=== PATIENT | male | born 1960 | race Caucasian/White ===

== ENCOUNTER 2019-05-20 12:03 | Inpatient (IN) | payer OTHER ==
[~2019-05-20] VITALS: Ht 182.9 cm; Wt 64.0 kg
[2019-05-20 12:29] LABS: PCO2 Arterial 41.3 mmHg (35-45); pH Blood Arterial 7.27 (7.35-7.45)
[2019-05-20 13:36] LABS: BASOPHILS ABSOLUTE AUTO 0.03 K/mm3 (0.00-0.23); BASOPHILS PERCENT AUTO 0 % (0-2); EOSINOPHILS ABSOLUTE AUTO 0.02 K/mm3 (0.00-0.68); EOSINOPHILS PERCENT AUTO 0 % (0-6); Hematocrit 22.8 % (37.0-53.0); Hemoglobin 7.2 g/dL (13.5-17.5); IMMATURE GRAN ABSOLUTE AUTO 0.04 K/mm3 (0.00-0.10); IMMATURE GRAN PERCENT AUTO 0 % (0-1); LYMPHOCYTES ABSOLUTE AUTO 1.29 K/mm3 (0.84-5.20); LYMPHOCYTES PERCENT AUTO 12 % (21-46); MONOCYTES PERCENT AUTO 5 % (4-13); Mean Corpuscular HGB 32.1 pg (26.0-34.0); Mean Corpuscular HGB Conc 31.6 g/dL (31.5-36.5); Mean Corpuscular Volume 102 fL (80-100); Mean Platelet Volume 9.4 fL (9.1-12.4); NEUTROPHILS ABSOLUTE AUTO 9.02 K/mm3 (1.96-9.15); NEUTROPHILS PERCENT AUTO 83 % (41-73); Platelet Count 153 K/mm3 (150-400); RDW Coefficient Variation 14.3 % (11.7-14.2); RDW Standard Deviation 52.5 fL (35.1-46.3); Red Blood Cell Count 2.24 M/mm3 (4.30-5.90)
[2019-05-20 13:53] LABS: CPK Creatine Kinase 257 U/L (39-308); Magnesium, Blood 1.9 mg/dL (1.6-2.4)
[2019-05-20 13:59] LABS: Alanine Aminotransfer (ALT/SGP 26 U/L (12-78); Albumin/Globulin Ratio 0.5 (0.8-1.8); Alk Phos 58 U/L (50-136); Anion Gap 11 mmol/L (6-16); Aspartate Aminotrans (AST/SGOT 30 U/L (12-37); Bilirubin, Total 0.2 mg/dL (0.1-1.0); Blood Urea Nitrogen 102 mg/dL (8-24); Bun/Creatinine Ratio 10.7 (12.0-20.0); CO2, Blood 19 mmol/L (21-32); Calcium, Blood 7.4 mg/dL (8.5-10.1); Chloride, Blood 115 mmol/L (98-108); Creatinine, Blood 9.52 mg/dL (0.60-1.20); Glomerular Filtration Rate 6 (60-); Glucose, Blood 101 mg/dL (70-99); Phosphorus, Blood 8.7 mg/dL (2.5-4.9); Potassium, Blood 5.3 mmol/L (3.5-5.5); Sodium, Blood 145 mmol/L (136-145)
[2019-05-20 14:28] LABS: U Amphetamine Screen DETECTED; U Barbituate Screen Not Detected; U Benzodiazapine Screen Not Detected; U Buprenorphine Screen Not Detected; U Cannabinoids Screen DETECTED; U Cocaine Screen Not Detected; U Methadone Screen Not Detected; U Methamphetamine Screen DETECTED; U Opiates Screen Not Detected; U Oxycodone Screen Not Detected; U Phencyclidine Screen Not Detected; U Propoxyphene Screen Not Detected
[2019-05-20 14:34] LABS: IMMATURE RETIC FRACTION 10.3 % (2.3-16.0); RETIC HGB EQUIVALENT 36.4 pg (28.20-36.60); RETICULOCYTE ABSOLUTE 0.0444 M/mm3 (0.0200-0.1100); RETICULOCYTE COUNT PERCENT 2.02 % (0.50-2.50)
--- NOTE | 2019-05-20 14:56 | NUR ---
Echocardiogram completed.
[2019-05-20 15:00] LABS: Source, Urine Catheter
[2019-05-20 15:04] LABS: Bilirubin, Urine Neg (Neg); Blood, Urine 5+ (Neg); Glucose Qualitative, Urine Neg (Neg); Ketones, Urine Neg (Neg); Leukocyte Esterase, Urine Neg (Neg); Nitrite, Urine Neg (Neg); Protein, Urine 4+ (Neg); Urobilinogen, Urine NORM (Normal)
[2019-05-20 15:19] LABS: International Normalized Ratio 1.14; Prothrombin Time Results 11.9 Sec (9.7-11.5)
[2019-05-20 15:21] LABS: Appearance, Urine Clear (Clear); Color, Urine Yellow (P-Yellow); Red Blood Cells, Urine 25-50 /hpf (0-2)
[2019-05-20 15:22] LABS: Bacteria Few /hpf; Squamous Epithelial Cells Few /hpf (Few)
[2019-05-20 18:39] LABS: Base Excess Venous -7.6 mmol/L; Bicarbonate Venous 18.5 mmol/L (24.0-30.0); PCO2 Venous 38.2 mmHg (38-42)
[2019-05-20 18:44] LABS: Hematocrit 24.7 % (37.0-53.0); Hemoglobin 7.9 g/dL (13.5-17.5)
--- NOTE | 2019-05-20 19:00 | NUR ---
INITAL ASSESSMENT PT IS INTUBATED AND SEDATED AT THIS TIME. HE DOES APPEAR TO BE COMFORTABLE, BUT IS NOT RESPONSIVE TO ANY COMMANDS. HE DOES WITHDRAW HIS LEGS AWAY WITH ADJUSTMENT OF HIS SOCKS ON HIS FEET. PUPILS ARE EQUAL BUT SLUGGISH. PT DOES HAVE A SLIGHT COUGH WHEN ET BEING SUCTIONED. PROPOFOL GTT AT 30MCG WILL CON'T TO TITRATE NEEDED T/O SHIFT FOR SEDATION. SEE RT NOTES REGARDING VENT SETTINGS. PT IS IN SOFT MIGUEL WRIST RESTRAINTS. NOT PULLING AGAINST RESTRAINTS. PT HAS AN OG TUBE IN PLACE WITH ET TUBE AND CLAMPED ORDERED. CEDENO CATH IN PLACE WITH 24 HOUR URINE IN PROGRESS. URINE ON ICE. TURNED PT AND SKIN APPEARS TO BE OVERALL CDI. COOL BUT NOT CLAMMY TO TOUCH. PT ALSO HAS MAINTANENCE FLUIDS RUNNING SEE EMAR. IV'S TO LEFT ARM ARE PATENT. POWERGLIDE TO LEFT ARM ALSO PATENT AND INFUSING. WILL CON'T TO MONITOR AND KEEP PT SAFE T/O SHIFT.
--- NOTE | 2019-05-20 19:33 | NUR ---
SHIFT SUMMARY: PATIENT ARRIVED FROM ED AT 1357 VIA GURNEY. INTUBATED AND SEDATED; VENT A/C/14/500/50% FIO2/5 PEEP, TOLERATING WELL. PROPOFOL WAS INFUSING AT 50 MCG/KG, BUT HAS BEEN TITRATED DOWN TO 30 MCG/KG WITH ADEQUATE SEDATION. SKIN INTACT. OLIGURIA; CEDENO DRAINING MINIMAL URINE, HAS 24 HOUR URINE COLLECTION STARTED. OGT CLAMPED. LUNG SOUNDS CLEAR IN UPPER LOBES, DIM IN BASES. S/P TRANSFUSION OF PRBC'S, NO ADVERSE REACTION NOTED. RENAL DUPLEX COMPLETED. PLAN IS FOR POSSIBLE DIALYSIS, HAS NEVER HAD DIALYSIS BEFORE, NO ACCESS AT THIS TIME. NO FAMILY AT BEDSIDE.
[2019-05-20 22:58] LABS: Hematocrit 24.5 % (37.0-53.0)
--- NOTE | 2019-05-20 23:55 | NUR ---
ASSESSMENT PT CON'T TO BE STABLE. HE SEEMS TO BE MORE RESPONSIVE WHEN THIS RN MOVES HIM ABOUT IN BED. HE MOVES HIS ARMS AND SWALLOWS MORE AROUND THE ET TUBE. HE CON'T HOWEVER TO NOT MOVE HIS HEAD OR FOLLOW ANY COMMANDS. NO CHANGES WITH RESPIRATORY STATUS. CON'T ON THE SAME VENT SETTINGS. SEE RT NOTES. VSS WITH NO CHANGES FROM BASELINE. WILL CON'T TO MONITOR AND TREAT PT.
[2019-05-21 03:58] LABS: BASOPHILS ABSOLUTE AUTO 0.04 K/mm3 (0.00-0.23); BASOPHILS PERCENT AUTO 0 % (0-2); EOSINOPHILS ABSOLUTE AUTO 0.43 K/mm3 (0.00-0.68); EOSINOPHILS PERCENT AUTO 5 % (0-6); Hematocrit 24.2 % (37.0-53.0); Hemoglobin 7.9 g/dL (13.5-17.5); IMMATURE GRAN ABSOLUTE AUTO 0.04 K/mm3 (0.00-0.10); IMMATURE GRAN PERCENT AUTO 0 % (0-1); LYMPHOCYTES ABSOLUTE AUTO 1.92 K/mm3 (0.84-5.20); LYMPHOCYTES PERCENT AUTO 22 % (21-46); MONOCYTES ABSOLUTE AUTO 0.57 K/mm3 (0.16-1.47); MONOCYTES PERCENT AUTO 6 % (4-13); Mean Corpuscular HGB 31.9 pg (26.0-34.0); Mean Corpuscular HGB Conc 32.6 g/dL (31.5-36.5); Mean Platelet Volume 10.1 fL (9.1-12.4); NEUTROPHILS ABSOLUTE AUTO 5.91 K/mm3 (1.96-9.15); NEUTROPHILS PERCENT AUTO 67 % (41-73); Platelet Count 141 K/mm3 (150-400); RDW Coefficient Variation 14.6 % (11.7-14.2); RDW Standard Deviation 51.2 fL (35.1-46.3); Red Blood Cell Count 2.48 M/mm3 (4.30-5.90); White Blood Cell Count 8.91 K/mm3 (4.00-11.30)
[2019-05-21 03:59] LABS: Mean Corpuscular Volume 98 fL (80-100)
[2019-05-21 04:31] LABS: Alanine Aminotransfer (ALT/SGP 26 U/L (12-78); Albumin/Globulin Ratio 0.5 (0.8-1.8); Alk Phos 57 U/L (50-136); Anion Gap 9 mmol/L (6-16); Aspartate Aminotrans (AST/SGOT 25 U/L (12-37); Bilirubin, Direct 0.2 mg/dL (0.0-0.3); Bilirubin, Indirect 0.1 mg/dL (0.1-0.7); Bilirubin, Total 0.3 mg/dL (0.1-1.0); Blood Urea Nitrogen 103 mg/dL (8-24); CO2, Blood 23 mmol/L (21-32); CPK Creatine Kinase 189 U/L (39-308); Calcium, Blood 7.5 mg/dL (8.5-10.1); Chloride, Blood 113 mmol/L (98-108); Globulin, Blood 3.8 g/dL (2.2-4.0); Glucose, Blood 91 mg/dL (70-99); Potassium, Blood 4.4 mmol/L (3.5-5.5); Sodium, Blood 145 mmol/L (136-145); Total Protein, Blood 5.8 g/dL (6.4-8.2); Uric Acid, Blood 9.1 mg/dL (3.5-7.2)
[2019-05-21 04:41] LABS: Bun/Creatinine Ratio 10.5 (12.0-20.0); Creatinine, Blood 9.77 mg/dL (0.60-1.20); Glomerular Filtration Rate 6 (60-); Phosphorus, Blood 8.5 mg/dL (2.5-4.9)
--- NOTE | 2019-05-21 05:07 | NUR ---
ASSESSMENT PT CON'T TO BE STABLE WITH NO CHANGES ON THE VENT. T/O SHIFT PT HAS BECOME MORE RESPONSIVE. AT THIS TIME WHEN TURNNING PT HE DOES HAVE FACIAL GRIMMACING AND MOVES HIS EXTREMITIES MORE. HE CON'T TO NOT OPEN HIS EYES AND DOES NOT FOLLOW ANY COMMANDS. NO CHANGES TO THE PROPOFOL GTT WHICH IS AT 30MCG. 24 HOUR URINE CON'T WELL. PT DID HAVE A CRITICAL PHOS THIS AM WHICH WAS CALLED TO DR VAZQUEZ. DR VAZQUEZ DID NOT HAVE ANY NEW ORDERS DUE TO THE VALUE TRENDING THE CORRECT WAY AND DR BARTH IS ALREADY CONSULTED. PT CON'T TO BE IN SOFT BILATERAL WRIST RESTRAINTS. WILL CON'T TO MONITOR AND KEEP PT SAFE T/O REMAINDER OF SHIFT.
--- NOTE | 2019-05-21 06:19 | NUR ---
SHIFT SUMMARY PT CON'T TO BE STABLE WITH NO CHANGES TO VITALS. NEUROLOGICALLY HE SEEMS TO BE MORE RESPONSIVE T/O SHIFT. RESPONDING MORE TO CARE. HE DOES HOWEVER CON'T TO BE NON-RESPONSIVE TO ANY COMMANDS. VENT SETTING CON'T TO BE UNCHANGED. WILL CON'T TO MONITOR AND KEEP PT SAFE TILL REPORT TO ONCOMING RN.
[2019-05-21 07:21] LABS: PCO2 Arterial 35.7 mmHg (35-45); PO2 Arterial 73.5 mmHg (80-100); pH Blood Arterial 7.38 (7.35-7.45)
[2019-05-21 10:34] LABS: Creatinine, Blood 9.71 mg/dL (0.60-1.20)
--- NOTE | 2019-05-21 11:39 | NUR ---
PT WAS PLACED ON SPONT EARLIER PER DR STATON AND IS TOLERATING PS 10 WITH 500 TV WELL.
[2019-05-21 12:29] LABS: Percent Saturation 24.7 % (20.0-50.0)
--- NOTE | 2019-05-21 13:56 | NUR ---
SEDATIION VACATION DONE WITH MOVEMENT OF ALL EXT, OPENING OF EYES, BUT BEGAN TO WILDLY TURN HEAD SIDE TO SIDE AND PROPOFOL GTT RESTARTED. RESTRAINTS IN PLACE, VSS. REMAINS ON PS 10 WITH RATE 22-24 AND TV 400-500 RANGE.
--- NOTE | 2019-05-21 17:05 | NUR ---
PT SLOWLY DROPPING TV, RR INC MID 20'S, SATS DOWN TO 88-89. FIO2 INC TO 35% RT RECOMMENDS WAITING ON RETURNING TO AC FOR NOW. PT IS IN NO SIGNIFICANT DISTRESS, JUST A SLOW DOWNWARD TREND.
--- NOTE | 2019-05-21 17:37 | NUR ---
PT RESTING ON 40MCG OF PROPOFOL. NO FURTHER RESP TRENDS OR DESAT NOTED AT THIS TIME. VSS, I/O NOTED AND 24 HOUR URINE SENT ON TIME, CONT IN SR.
[2019-05-21 18:09] LABS: Protein, Urine Quantitative 123.6 mg/dL (0.0-11.9)
--- NOTE | 2019-05-21 20:15 | NUR ---
RT AT BEDSIDE. PT PLACE BACK ON A/C: 14, Vt 500, PEEP 5.0, FiO2 35%.
--- NOTE | 2019-05-21 21:01 | NUR ---
AGITATION: PT VERY AGITATED AND FIGHTING VENT SINCE START OF SHIFT. DR. GRADY IN DEPT AND CAME TO BEDSIDE. FENTANYL 50mcg IVP Q2' ORDERED AND WAS GIVEN. PT MUCH MORE RELAXED. VSS. VENT SETTINGS REMAIN ON A/C 14, Vt 500, PEEP 5.0, FiO2 35%.
[2019-05-22 03:16] LABS: BASOPHILS ABSOLUTE AUTO 0.03 K/mm3 (0.00-0.23); BASOPHILS PERCENT AUTO 0 % (0-2); EOSINOPHILS ABSOLUTE AUTO 0.35 K/mm3 (0.00-0.68); EOSINOPHILS PERCENT AUTO 4 % (0-6); Hematocrit 24.5 % (37.0-53.0); Hemoglobin 7.8 g/dL (13.5-17.5); IMMATURE GRAN ABSOLUTE AUTO 0.02 K/mm3 (0.00-0.10); IMMATURE GRAN PERCENT AUTO 0 % (0-1); LYMPHOCYTES ABSOLUTE AUTO 2.32 K/mm3 (0.84-5.20); LYMPHOCYTES PERCENT AUTO 26 % (21-46); MONOCYTES ABSOLUTE AUTO 0.72 K/mm3 (0.16-1.47); MONOCYTES PERCENT AUTO 8 % (4-13); Mean Corpuscular HGB 32.6 pg (26.0-34.0); Mean Corpuscular HGB Conc 31.8 g/dL (31.5-36.5); Mean Corpuscular Volume 103 fL (80-100); NEUTROPHILS ABSOLUTE AUTO 5.51 K/mm3 (1.96-9.15); NEUTROPHILS PERCENT AUTO 62 % (41-73); Platelet Count 129 K/mm3 (150-400); RDW Coefficient Variation 14.5 % (11.7-14.2); RDW Standard Deviation 54.3 fL (35.1-46.3); Red Blood Cell Count 2.39 M/mm3 (4.30-5.90); White Blood Cell Count 8.95 K/mm3 (4.00-11.30)
[2019-05-22 03:42] LABS: Albumin, Blood 1.8 g/dL (3.4-5.0); Anion Gap 11 mmol/L (6-16); Blood Urea Nitrogen 105 mg/dL (8-24); Bun/Creatinine Ratio 10.6 (12.0-20.0); CO2, Blood 22 mmol/L (21-32); Chloride, Blood 115 mmol/L (98-108); Creatinine, Blood 9.93 mg/dL (0.60-1.20); Glomerular Filtration Rate 6 (60-); Glucose, Blood 108 mg/dL (70-99); Phosphorus, Blood 8.8 mg/dL (2.5-4.9); Potassium, Blood 4.3 mmol/L (3.5-5.5); Sodium, Blood 148 mmol/L (136-145)
--- NOTE | 2019-05-22 06:06 | NUR ---
DR. BARTH CALLED AND WAS UPDATED: NEW ORDERS TO INFUSE 1u PRBC TODAY. INCREASE FREE WATER TO 100cc q6 hours. D/C D5 NS AND CHANGE TO D5W 75/hr. FIND OUT WHO PT'S PRIMARY CARE PHYSICIAN IS AND FIND OUT BASELINE CREATININE.
--- NOTE | 2019-05-22 08:00 | NUR ---
INITIAL ASSESSMENT PATIENT INTUBATED AND SEDATED. SCLERAL EDEMA NOTED. PATIENT RESPONDING TO PAINFUL STIMULI AND NURSING CARE. R HAND CONTRACTED AND STIFF. PATIENT AFEBRILE. PATIENT RECEIVED PRN FENTANYL ABOUT 30 MINUTES AGO. NO SIGNS OF PAIN OR DISCOMFORT NOTED AT THIS TIME. PATIENT ON AC 14, TV 500, PEEP 5, FIO2 45%. LUNGS CLEAR IN UPPER LOBES AND DIMINISHED IN LOWER LOBES. SMALL AMOUNT OF THICK, HELLER SPUTUM BEING SUCTIONED FROM ETT. PATIENT IN SR, HR 80S TO 90S. BP STABLE. ANTIEMBOLISM STOCKINGS IN PLACE. PIVOT 1.5 TF INFUSING AT GOAL RATE OF 30 MLS PER HOUR WITH 100 ML WATER FLUSH Q6H. RESIDUAL OF 50 MLS OBTAINED AND REINSTILLED THIS AM. LAST DATE OF BM UNKNOWN. CEDENO IN PLACE, DRAINING YELLOW/ GREEN COLORED URINE. SCHEDULED BUMEX BEING GIVEN. 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 GRAFT SITES TO BILAT THIGHS. BRUISES TO LOWER ABDOMEN. D5W INFUSING AT 75 MLS/ HOUR. PROPOFOL AT 45 MCG/ KG/ MINUTE. BED LOW, CALL LIGHT IN REACH. WILL CONTINUE TO MONITOR PATIENT FREQUENTLY THROUGHOUT SHIFT.
--- NOTE | 2019-05-22 12:05 | NUR ---
PATIENT RESTING QUIETLY IN BED. PATIENT APPEARS WITHOUT PAIN OR DISCOMFORT AT THIS TIME. PATIENT AFEBRILE. VITAL SIGNS REMAIN STABLE. HR IN THE 80S. VENT SETTINGS- AC 14, TV 500, PEEP 5, FIO2 45%. TF ON HOLD FOR IMPENDING PERMACATH PLACEMENT. TF RESIDUAL OF 5 MLS OBTAINED AND REINSTILLED. BLOOD SUGAR OF 80. SEDATION DECREASED EARLIER IN SHIFT- PATIENT BECAME AGITATED AND WAS NOT FOLLOWING ANY COMMANDS. NO OTHER ACUTE CHANGES TO NOTE ON AT THIS TIME. WILL CONTINUE TO MONITOR.
--- NOTE | 2019-05-22 12:05 | NUR ---
DR. BARTH CALLED. DR. BARTH SPOKE TO SON AND CONSENTED TO PERMACATH PLACEMENT FOR DIALYSIS. DR. KUMARI CALLED AND INFORMED OF CONSULT. STATED TO KEEP PATIENT NPO, TF PLACED ON STANDBY. DR. KUMARI STATED HE WOULD BE BY SHORTLY.
--- NOTE | 2019-05-22 12:13 | NUR ---
DR. KUMARI AND PRIMARY NURSE TRIED TO CALL PATIENT'S SON, RADHA, FOR PERMACATH PLACEMENT CONSENT. SON DID NOT ANSWER. CALLED PATIENT'S SISTER, SHANA, AND OBTAINED CONSENT.
--- NOTE | 2019-05-22 14:01 | NUR ---
PATIENT TAKEN TO KETTLE LOADER FOR PERMACATH PLACEMENT.
--- NOTE | 2019-05-22 15:16 | NUR ---
PATIENT RETURNED FROM STRAIGHT CUTTER MACHINE. PATIENT REMAINS INTUBATED AND SEDATED. PATIENT APPEARS COMFORTABLE AT THIS TIME. VITAL SIGNS STABLE. TF RESTARTED AT GOAL RATE. WILL CONTINUE TO MONITOR.
--- NOTE | 2019-05-22 16:27 | NUR ---
DR. BARTH CALLED AND INFORMED THAT PERMACATH SUCCESSFULLY PLACED AND ABLE TO BE USED FOR DIALYSIS. DR. BARTH STATED THAT THEY WILL BEGIN DIALYSIS TOMORROW.
--- NOTE | 2019-05-22 16:34 | NUR ---
PATIENT RESTING QUIETLY. NO SIGNS OF PAIN OR DISCOMFORT AT THIS TIME. VITAL SIGNS STABLE. FI02 AT 35%. TF RESIDUAL OF 10 MLS OBTAINED AND REINSTILLED. NO OTHER ACUTE CHANGES TO NOTE ON AT THIS TIME. WILL CONTINUE TO MONITOR.
--- NOTE | 2019-05-22 18:43 | NUR ---
SHIFT SUMMARY PATIENT REMAINED INTUBATED AND SEDATED. SEDATION DECREASED DURING SHIFT TO ASSESS NEURO STATUS. PATIENT BECAME AGITATED AND DID NOT FOLLOW ANY COMMANDS. PATIENT REMAINED RESPONDING TO PAINFUL STIMULI AND NURSING CARE. PATIENT REMAINED AFEBRILE. PATIENT RECEIVED PRN FENTANYL FOR SIGNS OF PAIN. PATIENT REMAINED ON AC 14, PEEP 5, TV 500. FIO2 RANGED FROM 30 TO 45%. FIO2 CURRENTLY 30%. LUNGS HAVE REMAINED CLEAR IN UPPER LOBES AND DIMINISHED IN LOWER LOBES. PATIENT REMAINED IN SR, HR 80S TO 90S. BP REMAINED STABLE. ANTIEMBOLISM STOCKINGS IN PLACE. TF REMAINED INFUSING AT GOAL RATE. RESIDUALS 5 TO 50 MLS. NO BM THIS SHIFT. CEDENO REMAINED DRAINING YELLOW/ GREEN URINE. PATIENT HAD PERMACATH PLACED TO LEFT UPPER CHEST. SITE OOZING SLIGHTLY ABOUT HALF AN HOUR AGO. CHARGE NURSE IN ROOM- CLEANSED SITE WITH CHLOROHEXADINE, PLACED KARRIE DRESSING AND TEGADERM. 2 LB WEIGHT APPLIED. HAS REMAINED STABLE SINCE. PATIENT REPOSITIONED Q2H AND PRN. PROPOFOL INFUSING AT 45 MCG/ KG/ MINUTE. BLOOD SUGARS 80 TO 84. NO SIGNS OF PAIN AT THIS TIME. BED LOW, CALL LIGHT IN REACH. WILL BE GIVING REPORT TO ONCOMING NURSE SHORTLY.
--- NOTE | 2019-05-22 18:54 | NUR ---
REPORT GIVEN TO ASSUMING NURSE, STEVEN CONNELLY.
--- NOTE | 2019-05-22 20:00 | NUR ---
ASSUMED CARE OF PT AT 1915. REPORT RECEIVED AT BEDSIDE. PT PRESENTS IN BED. VENTED. AC 14, Tv 500, FIO2 30 %, PEEP 5. PT TOLERATING VENT WELL WITH PROPOFOL AT 40 MCG'S. PT IN NO APPARENT DISTRESS. WILL REVIEW CHART AND PLAN OF CARE FOR THIS PT.
--- NOTE | 2019-05-22 23:00 | NUR ---
FULL BEDBATH DONE WITH FULL LINEN CHANGE. PT TOLERATES THIS WELL. DOES ELICIT COUGH DURING TURNS. ETT SUCTIONING DONE WITH RETURN OF LIGHT HELLER COLORED SPUTUM WITH SPECKS. PT ABLE TO MAINTAIN GREATER THAN 90 PERCENT SATURATIONS WITH CURRENT VENT SETTINGS. PT HAS ADEQUATE URNE OUTPUT WITH CLEAR VERY LIGHT COLORED URINE. WILL CONTINUE TO MONITOR PT.
--- NOTE | 2019-05-23 03:00 | NUR ---
PT RESTING IN BED. CONTINUES ON 40 MCG PROPOFOL AND MAINTAINS SAS OF 3. PT AWAKENS TO TACTILE STIMULI. BUT EASILY RETURNS TO SLEEP. PT IN NO APPARENT DISTRESS AT THIS TIME.
[2019-05-23 03:50] LABS: BASOPHILS ABSOLUTE AUTO 0.04 K/mm3 (0.00-0.23); BASOPHILS PERCENT AUTO 1 % (0-2); EOSINOPHILS ABSOLUTE AUTO 0.63 K/mm3 (0.00-0.68); EOSINOPHILS PERCENT AUTO 8 % (0-6); Hematocrit 27.1 % (37.0-53.0); Hemoglobin 8.4 g/dL (13.5-17.5); IMMATURE GRAN ABSOLUTE AUTO 0.03 K/mm3 (0.00-0.10); IMMATURE GRAN PERCENT AUTO 0 % (0-1); LYMPHOCYTES ABSOLUTE AUTO 2.31 K/mm3 (0.84-5.20); LYMPHOCYTES PERCENT AUTO 27 % (21-46); MONOCYTES ABSOLUTE AUTO 0.55 K/mm3 (0.16-1.47); MONOCYTES PERCENT AUTO 7 % (4-13); Mean Corpuscular HGB 31.6 pg (26.0-34.0); Mean Corpuscular Volume 102 fL (80-100); NEUTROPHILS ABSOLUTE AUTO 4.86 K/mm3 (1.96-9.15); NEUTROPHILS PERCENT AUTO 58 % (41-73); Platelet Count 133 K/mm3 (150-400); RDW Coefficient Variation 14.6 % (11.7-14.2); RDW Standard Deviation 54.4 fL (35.1-46.3); Red Blood Cell Count 2.66 M/mm3 (4.30-5.90); White Blood Cell Count 8.42 K/mm3 (4.00-11.30)
[2019-05-23 04:14] LABS: Magnesium, Blood 2.1 mg/dL (1.6-2.4)
[2019-05-23 04:37] LABS: Anion Gap 10 mmol/L (6-16); Blood Urea Nitrogen 103 mg/dL (8-24); Bun/Creatinine Ratio 10.4 (12.0-20.0); CO2, Blood 23 mmol/L (21-32); Calcium, Blood 7.3 mg/dL (8.5-10.1); Chloride, Blood 112 mmol/L (98-108); Creatinine, Blood 9.95 mg/dL (0.60-1.20); Glomerular Filtration Rate 5 (60-); Glucose, Blood 95 mg/dL (70-99); Potassium, Blood 5.4 mmol/L (3.5-5.5); Sodium, Blood 145 mmol/L (136-145)
--- NOTE | 2019-05-23 08:00 | NUR ---
INITIAL ASSESSMENT PATIENT INTUBATED AND SEDATED. PATIENT RESPONDS TO PAINFUL STIMULI AND NURSING CARE. GROSS MOVEMENTS OF ALL EXTREMITIES NOTED. R HAND CONTRACTED. 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 PATIENT AFEBRILE. PATIENT SATTING 90% AND GREATER ON VENT SETTINGS OF AC 14, TV 500, PEEP 5, 30% FIO2. PATIENT HAS MOIST COUGH. MODERATE AMOUNT OF THICK, HELLER SPUTUM BEING SUCTIONED FROM ETT. PATIENT IN SR, HR IN THE 90S. BP STABLE. ANTIEMBOLISM STOCKINGS IN PLACE. PIVOT 1.5 TF INFUSING AT GOAL RATE OF 30 MLS PER HOUR WITH 100 ML WATER FLUSH Q6H. RESIDUAL OF 70 MLS OBTAINED AND REINSTILLED THIS AM. DATE OF LAST BM UNKNOWN. CEDENO DRAINING YELLOW/ GREEN COLORED URINE. SCHEDULED BUMEX BEING GIVEN. PERMACATH TO LEFT CHEST. SCARS NOTED TO BILAT THIGHS AND R ARM. BRUISES NOTED TO LOWER ABDOMEN. PROPOFOL INFUSING AT 40 MCG/ KG/ MINUTE. BED LOW, CALL LIGHT IN REACH. WILL CONTINUE TO MONITOR PATIENT FREQUENTLY THROUGHOUT SHIFT.
[2019-05-23 09:08] LABS: ANTIGLOMERULAR BM AB 4 units (0-20)
--- NOTE | 2019-05-23 12:00 | NUR ---
PATIENT REMAINS INTUBATED AND SEDATED. NO SIGNS OF PAIN AT THIS TIME. AFEBRILE. VITAL SIGNS STABLE. HR 80S TO 90S. BP STABLE. VENT SETTINGS AC 14, TV 500, PEEP 5, 30% FIO2. TF RESIDUAL OF 210 MLS OBTAINED AND REINSTILLED. BLOOD SUGAR OF 112. NO OTHER ACUTE CHANGES TO NOTE ON AT THIS TIME. WILL CONTINUE TO MONITOR.
--- NOTE | 2019-05-23 15:18 | NUR ---
PATIENT ON SEDATION VACATION FOR ALMOST AN HOUR. PATIENT FOLLOWING SIMPLE COMMANDS AND ANSWERING QUESTIONS WITH NODDING AND SHAKING OF HEAD. DR. STATON CALLED TO ROOM TO SEE PATIENT. SPOKE WITH PATIENT AND PLACED HIM ON SPONTANEOUS PRESSURE SUPPORT. INFORMED PATIENT THAT HE WAS DOING WELL AND THAT MAY BE ABLE TO PULL THE BREATHING TUBE AFTER DIALYSIS TOMORROW. PATIENT BECAME AGITATED AND STARTING SHAKING HIS HEAD "NO" WHEN TOLD THIS. SEDATION STARTED BACK UP. PATIENT PLACED BACK ON AC SETTINGS SHORT TIME LATER.
--- NOTE | 2019-05-23 16:00 | NUR ---
PATIENT RESTING QUIETLY IN BED. VITAL SIGNS STABLE. AFEBRILE. NO SIGNS OF PAIN OR DISCOMFORT NOTED AT THIS TIME. RESIDUAL OF 75 MLS OBTAINED AND REINSTILLED. NO ACUTE CHANGES TO NOTE ON AT THIS TIME. WILL CONTINUE TO MONITOR.
[2019-05-23 16:06] LABS: A/G RATIO 0.8 (0.7-1.7); ALBUMIN 2.3 g/dL (2.9-4.4); ALPHA-1-GLOBULIN 0.3 g/dL (0.0-0.4); ALPHA-2-GLOBULIN 0.7 g/dL (0.4-1.0); BETA GLOBULIN 0.9 g/dL (0.7-1.3); GAMMA GLOBULIN 1.3 g/dL (0.4-1.8); GLOBULIN, TOTAL 3.1 g/dL (2.2-3.9); IMMUNOGLOBULIN A, QN, SERUM 273 mg/dL (90-386); IMMUNOGLOBULIN G, QN, SERUM 1331 mg/dL (700-1600); IMMUNOGLOBULIN M, QN, SERUM 16 mg/dL (20-172); M-SPIKE Not Observed g/dL (Not Observed); PROTEIN, TOTAL, SERUM 5.4 g/dL (6.0-8.5)
--- NOTE | 2019-05-23 18:38 | NUR ---
SHIFT SUMMARY PATIENT REMAINED INTUBATED AND SEDATED. PATIENT REMAINED RESPONDING TO PAINFUL STIMULI AND NURSING CARE. PATIENT DID HAVE SEDATION VACATION FOR AROUND AN HOUR TODAY. PATIENT WAS ABLE TO OPEN EYES, ANSWER YES AND NO QUESTIONS WITH NODDING AND SHAKING OF HEAD, AND FOLLOW SOME SIMPLE COMMANDS SUCH WIGGLING TOES AND SQUEEZING HANDS. PATIENT ABLE TO MOVE ALL EXTREMITIES. PATIENT GIVEN PRN FENTANYL FOR SIGNS OF PAIN. PATIENT REMAINED AFEBRILE. PATIENT REMAINED ON VENT SETTINGS AC 14, PEEP 5, TV 500 AND FIO2 BETWEEN 30 TO 40%, EXCEPT WHEN ON SEDATION VACATION WHEN PATIENT WAS ON SPONTANEOUS SETTINGS. PATIENT REMAINED IN SR, HR 80S TO 90S. BP REMAINED STABLE. TF REMAINED AT GOAL RATE. RESIDUAL RANGED FROM 70 TO 210 MLS. PATIENT HAD GOOD URINE OUTPUT FROM CEDENO. PATIENT CONTINUES TO RECEIVE SCHEDULED BUMEX. NO CHANGE TO SKIN. PATIENT REPOSITIONED THROUGHOUT SHIFT. PROPOFOL CURRENTLY INFUSING AT 30 MCG/ KG/ MINUTE. PATIENT HAD DIALYSIS THIS AM AND HAD 1 LITER PULLED OFF. PATIENT APPEARS COMFORTABLE AT THIS TIME. BED LOW, CALL LIGHT IN REACH. WILL BE GIVING REPORT TO ONCOMING STAMP PRESS OPERATOR NURSE SHORTLY.
[2019-05-24 03:51] LABS: Hematocrit 26.7 % (37.0-53.0); Hemoglobin 8.6 g/dL (13.5-17.5)
[2019-05-24 04:11] LABS: Albumin, Blood 1.9 g/dL (3.4-5.0); Anion Gap 7 mmol/L (6-16); Blood Urea Nitrogen 67 mg/dL (8-24); Bun/Creatinine Ratio 9.7 (12.0-20.0); CO2, Blood 30 mmol/L (21-32); Calcium, Blood 7.6 mg/dL (8.5-10.1); Chloride, Blood 104 mmol/L (98-108); Creatinine, Blood 6.92 mg/dL (0.60-1.20); Glomerular Filtration Rate 9 (60-); Glucose, Blood 99 mg/dL (70-99); Magnesium, Blood 1.9 mg/dL (1.6-2.4); Phosphorus, Blood 7.4 mg/dL (2.5-4.9); Potassium, Blood 4.5 mmol/L (3.5-5.5); Sodium, Blood 141 mmol/L (136-145)
--- NOTE | 2019-05-24 05:48 | NUR ---
PT SLEPT THROUGH NIGHT. VSS. PAIN, AGGITATION CONTROLLE WITH ORDERED MEDICATIONS, SEE EMAR. OTHERWISE PT. REMAINED MILDLY SEDATED THROUGH NIGHT, ROUSABLE TO MODERATE NAILBED PRESSURE, LIGHT SHAKING OF SHOULDER. IN AM, PT. PASSES BREATHING TRIAL. ABLE TO BREATHE ON SPONTANEOUS SETTING, PULLING ~ 400 TIDAL VOLUMES, RATE ~ 18, MAINTAIN SPO2 > 95% ON IO2 40%. WILL CONTINUE TO MONITOR.
--- NOTE | 2019-05-24 07:20 | NUR ---
ASSUMED CARE OF PT AT 0700. REPORT FROM GRADY JOHNSON. PT INTUBATED AND SEDATED. VENT SETTINGS AC 14/500/5/40%. PROPOFOL INCREASED TO 25 MCG/KG/MIN. PT GRIMACES c CARE. GAG AND COUGH REFLEX PRESENT. JULIETA, 2MM. LUNGS CLEAR. PT P/W/D. VSS. CEDENO PATENT AND DRAINING TO GRAVITY. POWERGLIDE TO LUE. FUENTES HOSE IN PLACE. PT MOVES EXTREMITIES. TUBE FEEDING AT GOAL, 30 ML/HR. RESIDUALS 100ML. WILL PLAN FOR DIALYIS AND EXTUBATION TODAY. WILL CONTINUE TO MONITOR.
--- NOTE | 2019-05-24 09:20 | NUR ---
DR CARPENTER AT BEDSIDE FOR ASSESSMENT. WILL PLACE PROPOFOL ON STANDBY AND MONITOR FOR POTENTIAL EXTUBATION. TUBE FEEDINGS PLACED ON HOLD.
--- NOTE | 2019-05-24 11:04 | NUR ---
PROPOFOL ON STANDYBY AT 0927, VENT SET TO SPONTANEOUS MODE AT 0941. PT FOLLOWING SIMPLE COMMANDS. DR CARPENTER NOTIFIED. RT AT BEDSIDE FOR EXTUBATION AT 1059. PT ABLE TO MANAGE SECRETIONS. WET COUGH NOTED. ASSISTED TO SUCTION. PLACED ON 2L VIA NC. WILL CONTINUE TO MONITOR.
[2019-05-24 11:07] LABS: M-SPIKE, % Not Observed % (Not Observed); PROTEIN,TOTAL,URINE 100.9 mg/dL (Not Estab.)
--- NOTE | 2019-05-24 13:14 | NUR ---
PT CONTINUES TO BE HYPERTENSIVE. DR CARPENTER AWARE. DIALYSIS NURSE AT BEDSIDE. PT RESTLESS IN BED. ATTEMPTED TO REPOSITION, REDIRECT AND CALM. PT c WET COUGH, ABLE TO SPIT UP SECRETIONS. WILL CONTINUE TO MONITOR.
--- NOTE | 2019-05-24 15:34 | NUR ---
DIALYSIS CONTINUES AT BEDSIDE. PT c WET, PRODUCTIVE COUGH. WHITE SPUTUM. ABLE TO CLEAR SECRETIONS, ASSIST c SUCTIONING NEEDED. LUNGS CLEAR. PT INTERMITTANTLY RESTLESS IN BED. REPOSITIONED FOR COMFORT NEEDED. PT c QUIET, MUMBLING SPEECH. DIFFICULT TO UNDERSTAND. WILL CONTINUE TO MONITOR.
--- NOTE | 2019-05-24 17:54 | NUR ---
SHIFT SUMMARY PT EXTUBATED TODAY. PT FOLLOWING SIMPLE COMMANDS. DIFFICULT TO UNDERSTAND D/T MUMBLED SPEECH. MAEW. O2 TITRATED DURING SHIFT FOR O2 SATS <94%. PT ON 5L AT THIS TIME. RHONCHI IN UPPER LOBES, WORSE ON RIGHT. PT c GOOD COUGH, PRODUCTIVE, WHITE SPUTUM. ASSIST TO CLEAR c SUCTIONING. ASSISTED PT TO USE FLUTTER VALVE. PT TOO WEAK TO HOLD BUT ABLE TO USE c ASSISTANCE. NASOTRACHEAL SUCTIONING THIS SHIFT, PER DR CARPENTER CONTINUE NEXT SHIFT NEEDED. WILL MAINTAIN NPO STATUS AT THIS TIME. DIALYSIS c 1 UNIT PRBCS TODAY. 2450 ML OFF. CONTINUED DIURESIS c BUMEX. CEDENO PATENT AND DRAINING CLEAR YELLOW URINE TO GRAVITY. 1200ML OUT TODAY. HTN NOTED THIS SHIFT. IMPROVED FOR SHORT PERIOD OF TIME p DIALYSIS, ORDER OBTAINED AND MEDICATED c PRN LABETALOL IVP. PT c SMALL BM THIS SHIFT p SUPPOSITORY. SENT TO LAB FOR GUIAC. REPORT TO ONCOMING NURSE.
[2019-05-25 03:53] LABS: Hematocrit 36.2 % (37.0-53.0); Hemoglobin 11.6 g/dL (13.5-17.5)
[2019-05-25 04:07] LABS: HBSAG SCREEN Negative (Negative); HEP A AB, IGM Negative (Negative); HEP B CORE AB, IGM Negative (Negative); HEP C VIRUS AB >11.0 (0.0-0.9)
[2019-05-25 04:09] LABS: Magnesium, Blood 1.9 mg/dL (1.6-2.4)
[2019-05-25 04:10] LABS: Albumin, Blood 2.1 g/dL (3.4-5.0); Anion Gap 10 mmol/L (6-16); Blood Urea Nitrogen 47 mg/dL (8-24); Bun/Creatinine Ratio 8.9 (12.0-20.0); CO2, Blood 29 mmol/L (21-32); Calcium, Blood 8.4 mg/dL (8.5-10.1); Chloride, Blood 99 mmol/L (98-108); Creatinine, Blood 5.31 mg/dL (0.60-1.20); Glomerular Filtration Rate 12 (60-); Glucose, Blood 78 mg/dL (70-99); Potassium, Blood 4.5 mmol/L (3.5-5.5); Sodium, Blood 138 mmol/L (136-145)
[2019-05-25 04:15] LABS: Phosphorus, Blood 6.9 mg/dL (2.5-4.9)
--- NOTE | 2019-05-25 05:24 | NUR ---
SHIFT SUMMARY PT. SLEPT OFF AND ON THROUGH NIGHT. DOBHOFF WAS DROPPED PER DR. CARPENTER FOR MEDICATION ADMINISTRATION, CONFIRMED VIA PARKER ARAIZA. PT. WAS GIVEN PM LABETALOL, DID REQUIRE X1 PRN DOSE OF 5MG LABETALOL, BP IS TRENDING BACK UP, HOWEVER SBP STILL UNDER 160 AT THIS TIME. GAVE X1 TYLENOL FOR PAIN, X2 ATIVAN FOR AGITATION. PT. NEURO STATUS MAINTAINS UNDER BASELINE, ORIENTED TO PERSON AND PLACE, FOLLOWING COMMANDS, BUT NO MORE CLEAR THAN HE WAS AT BEGIN OF SHIFT. WILL CONTINUE TO MONITOR.
[2019-05-25 05:55] LABS: Stool Occult Blood Guaiac 1 Neg (Neg)
--- NOTE | 2019-05-25 07:50 | NUR ---
ASSUMED CARE AT 0700. REPORT FROM GRADY JOHNSON. PT RESTING IN BED. WAKES c VERBAL STIMULI. GARBLED SPEECH, DIFFICULT TO UNDERSTAND. FOLLOWS SIMPLE COMMANDS. LUNGS COARSE IN UPPER RIGHT LOBE. O2 VIA NC AT 5L, O2 SATS 99%. WILL TITRATED DOWN FOR SATS 94%. DOBHOFF TO LEFT NARE. FLUSHES EASILY. BT X 4. ABD SOFT, NON TENDER. PERMCATH TO LEFT CHEST. POWERGLIDE LUE, INFUSING NS TKO. CEDENO PATENT AND DRAINING CLEAR YELLOW URINE TO GRAVITY. SCDS IN PLACE. WILL MONITOR HYPERTENSION AND MS. WILL CONTINUE TO MONITOR.
--- NOTE | 2019-05-25 09:53 | NUR ---
DR CARPENTER AT BEDSIDE FOR ASSESSMENT. WILL TITRATED O2 TODAY, D/C CEDENO AND CONSULT PT FOR EVAL.
[2019-05-25 10:02] LABS: Mean Corpuscular HGB 31.5 pg (26.0-34.0); Mean Corpuscular HGB Conc 31.8 g/dL (31.5-36.5); Mean Platelet Volume 10.4 fL (9.1-12.4); Platelet Count 176 K/mm3 (150-400); RDW Coefficient Variation 14.5 % (11.7-14.2); RDW Standard Deviation 52.6 fL (35.1-46.3); Red Blood Cell Count 3.71 M/mm3 (4.30-5.90); White Blood Cell Count 10.34 K/mm3 (4.00-11.30)
[2019-05-25 10:07] LABS: Mean Corpuscular Volume 99 fL (80-100)
[2019-05-25 17:07] LABS: ANA DIRECT Negative (Negative); ANTIMYELOPEROXIDASE (MPO) ABS 10.1 U/mL (0.0-9.0); ANTIPROTEINASE 3 (PR-3) ABS <3.5 U/mL (0.0-3.5); ATYPICAL PANCA <1:20 titer (Neg:<1:20); CYTOPLASMIC (C-ANCA) <1:20 titer (Neg:<1:20); PERINUCLEAR (P-ANCA) 1:40 titer (Neg:<1:20)
--- NOTE | 2019-05-25 17:26 | NUR ---
SHIFT SUMMARY PT MENTATION IMPROVED TODAY. PT SPEAKING IN SHORT SENTANCES, SPEECH CONTINUES TO BE MUMBLED BUT IMPROVED. PT REQUESTING TO EAT. EDUCATION PT ON SWALLOW EVAL. PLANNED TO COMPLETE AFTER DIALYSIS, PT FELL ASLEEP, WILL ATTEMPT WHEN PT WAKES. O2 TITRATED TO 1L VIA NC. LUNGS CLEAR. VSS. TUBE FEEDING STARTED THROUGH DOBHOFF TODAY. INFUSING AT 25 ML/HR, GOAL OF 45 ML/HR. CEDENO D/C'D PER DR CARPENTER. PT ABLE TO REQUEST FOR URINE WHEN NEEDED. LUNGS CLEAR, PT DID NOT NEED SUCTIONING THIS SHIFT. REPORT TO ONCOMING NURSE.
--- NOTE | 2019-05-25 18:30 | NUR ---
PT PASSED BEDSIDE SWALLOW TEST. PT c STRONG COUGH, STATES "IM HUNGRY." VOICE IMPROVED. WHEN ASKED WHO THE PRESIDENT IS, PT STATES "MAKE MEENAKSHI GREAT AGAIN." WILL NOTIFY NOC NURSE AND DR CARPENTER.
--- NOTE | 2019-05-25 23:02 | NUR ---
BEGIN SHIFT PT. LYING IN BED QUIETLY. TKO RUNNING @ 10 ML/HR INTO LUE POWERGLIDE, NEPRO RUNNING @ 25 ML/HR INTO L NARE DOBHOFF. INCREASED RATE TO 35 ML/HR ROXANA ORDER @ 20:00. PT. REQUESTS SLEEP AIDE, RECEIVED ORDER FOR 3MG MELATONIN. PT. PASSED NURSING SWALLOW JOSE ANTONIO, FED X1 CONTAINER OF JELLO, ABOUT 200 ML H2O. 21:[address] CARPENTER, DECIDED TO HOLD PM LABETALOL FOR SBP IN 90S. VSS. WILL CONTINUE TO MONITOR.
--- NOTE | 2019-05-26 02:11 | NUR ---
0100 PT HYPERTENSIVE (SBP 190S) WHILE IN DEEP SLEEP. GAVE 5MG LABETALOL IVP, SBP NOW IN 150S.
[2019-05-26 03:52] LABS: BASOPHILS ABSOLUTE AUTO 0.07 K/mm3 (0.00-0.23); BASOPHILS PERCENT AUTO 1 % (0-2); EOSINOPHILS ABSOLUTE AUTO 0.45 K/mm3 (0.00-0.68); EOSINOPHILS PERCENT AUTO 4 % (0-6); Hematocrit 37.2 % (37.0-53.0); Hemoglobin 12.1 g/dL (13.5-17.5); IMMATURE GRAN ABSOLUTE AUTO 0.03 K/mm3 (0.00-0.10); IMMATURE GRAN PERCENT AUTO 0 % (0-1); LYMPHOCYTES ABSOLUTE AUTO 2.64 K/mm3 (0.84-5.20); LYMPHOCYTES PERCENT AUTO 24 % (21-46); MONOCYTES ABSOLUTE AUTO 0.92 K/mm3 (0.16-1.47); MONOCYTES PERCENT AUTO 8 % (4-13); Mean Corpuscular HGB 32.2 pg (26.0-34.0); Mean Corpuscular HGB Conc 32.5 g/dL (31.5-36.5); Mean Corpuscular Volume 99 fL (80-100); Mean Platelet Volume 9.5 fL (9.1-12.4); NEUTROPHILS ABSOLUTE AUTO 6.96 K/mm3 (1.96-9.15); NEUTROPHILS PERCENT AUTO 63 % (41-73); Platelet Count 180 K/mm3 (150-400); RDW Coefficient Variation 13.8 % (11.7-14.2); RDW Standard Deviation 49.9 fL (35.1-46.3); Red Blood Cell Count 3.76 M/mm3 (4.30-5.90); White Blood Cell Count 11.07 K/mm3 (4.00-11.30)
[2019-05-26 04:11] LABS: Albumin, Blood 2.3 g/dL (3.4-5.0); Anion Gap 9 mmol/L (6-16); Blood Urea Nitrogen 48 mg/dL (8-24); Bun/Creatinine Ratio 10.2 (12.0-20.0); CO2, Blood 32 mmol/L (21-32); Calcium, Blood 8.6 mg/dL (8.5-10.1); Chloride, Blood 96 mmol/L (98-108); Creatinine, Blood 4.72 mg/dL (0.60-1.20); Glomerular Filtration Rate 14 (60-); Glucose, Blood 101 mg/dL (70-99); Magnesium, Blood 2.2 mg/dL (1.6-2.4); Phosphorus, Blood 7.4 mg/dL (2.5-4.9); Potassium, Blood 3.9 mmol/L (3.5-5.5); Sodium, Blood 137 mmol/L (136-145)
--- NOTE | 2019-05-26 05:38 | NUR ---
SHIFT SUMMARY PATIENT SLEPT WELL AFTER ABOUT MIDNIGHT. VSS. NO COMPLAINTS OF PAIN. NEURO STATUS IMPROVED, ORIENTED TO SITUATION. PATIENT REFUSED HEPARIN SHOT EARLIER IN HOS, STATING "MY BLOOD IS THIN ENOUGH." TUBE FEEDING INCREASED TO GOAL RATE OF 45 ML/HR, TOLERTATING WELL. WILL CONTINUE TO MONITOR.
--- NOTE | 2019-05-26 07:40 | NUR ---
ASSUMED CARE OF PT AT 0700. REPORT FROM GRADY JOHNSON. PT RESTING IN BED. WAKES c VERBAL STIMULI. A&O X 3. FOLLOWS COMMANDS. REQUESTING DOBHOFF BE REMOVED. LUNGS CLEAR. CURRENTLY ON 1L VIA NC. VSS. MAEW. POWERGLIDE TO YOHANNES. PERMCATH LEFT CHEST. TUBE FEEDING INFUSING AT 45 ML/HR. UPDATED PT ON PLAN FOR TODAY. WILL CONTINUE TO MONITOR.
--- NOTE | 2019-05-26 08:52 | NUR ---
ASSISTED PT TO CHAIR AT BEDSIDE. PT ONE PERSON ASSIST. PT c STRONG COUGH. FULL LIQUID DIET GIVEN. DR CARPENTER NOTIFIED. DOBHOFF REMOVED. PT REQUIRED ASSISTANCE TO EAT. BACK TO BED.
--- NOTE | 2019-05-26 09:40 | NUR ---
DR CARPENTER AT BEDSIDE FOR ASSESSMENT. PT STATUS CHANGED TO PCU.
--- NOTE | 2019-05-26 15:35 | NUR ---
SHIFT SUMMARY DOBHOFF REMOVED THIS AM. PROGRESSED DIET TO FULL LIQUID. PT TOLERATED WELL. PT WEAK, REQUIRE ASSISTANCE c MEALS. PT ATTEMPTS TO ASSIST BUT LACKS DEXTERITY. UP TO CHAIR THREE TIMES TODAY. ONE PERSON ASSIST. PT WEAK BUT ABLE TO SHUFFLE STEP TO BED OR CHAIR. ABLE TO BOOST SELF UP IN BED AND REPOSITION SELF. SPEECH IMPROVED THIS SHIFT. O2 NO LONGER NEEDED, SATS >94 ON RA. LUNGS CLEAR. SISTER SHANA UPDATED ON PT CONDITION. REPORT TO CARLOS. PT TRANSFERRED TO PCU. ALL BELONGINGS c PT.
--- NOTE | 2019-05-26 15:45 | NUR ---
TRANSFER RM PCU 13 REPORT RECEIVED FROM ICU. PT ARRIVED VIA BED. PT AWAKE AND ALERT. SLIDE TO NEW BED WITH 4 ASIST AND SLIDER SHEET. PT TOLERATED WELL. PT ASKED FOR WARM BLANKET. NEEDS REORIENTING TO PLACE. RECLINER OBTAINED FOR PT FOR MEALS. CONTINUE POT.
--- NOTE | 2019-05-26 23:38 | NUR ---
ASSUMED CARE AT 1900. VERY FLAT AFFECT. LILMITED INTEREST AND DISCUSSION WITH ANY TEACHING. SHOWER MOSTLY SLEF CARE . TOLERATED W/ THIS ACTIVITY. NO SOB NOTED. COOPERATIVE TO CALL AND ASK FOR ASSISTANCE. FLUTTER VALVE UPON REQUEST. REFUSED HS SNACK. DENIES PAIN OR GI DISTRESS. APPROX 30 BT RUN OF SVT WHILE ASLEEP AND AROUSED W/ NO RERPORT OF PALPITATIONS OR CP. NOW SR 70-80. HELD 200 MG TRANDATE PO W/ BP 135/80. HR 70. REFUSED HEPARIN SUB Q . ACCEPTED SCDS. FLUTTER VALVE PROMOTES COUGH. LOOSE NON PRODUCTIVE, NOTED W/ SOUND SLEEP SAT 87% . AGREES TO 2L NC . WILL SPOT CHECK SAT. SEVERE WEAKNESS AND ENC MORE ACTIVE ROM. SPOKE W/ SISTER ON PHONE AND GAVE STAFF PERMISSION TO TALK TO HER,. CLEAR BUT SHORT CONVERSATION W/ SISTER . THEN FALLS OFF TO SLEEP.
[2019-05-27 04:19] LABS: Hematocrit 34.4 % (37.0-53.0); Hemoglobin 11.1 g/dL (13.5-17.5)
[2019-05-27 05:57] LABS: Albumin, Blood 2.2 g/dL (3.4-5.0); Anion Gap 9 mmol/L (6-16); Blood Urea Nitrogen 71 mg/dL (8-24); Bun/Creatinine Ratio 11.4 (12.0-20.0); CO2, Blood 30 mmol/L (21-32); Calcium, Blood 8.1 mg/dL (8.5-10.1); Chloride, Blood 98 mmol/L (98-108); Creatinine, Blood 6.23 mg/dL (0.60-1.20); Glomerular Filtration Rate 10 (60-); Glucose, Blood 101 mg/dL (70-99); Magnesium, Blood 2.5 mg/dL (1.6-2.4); Phosphorus, Blood 7.9 mg/dL (2.5-4.9); Potassium, Blood 3.6 mmol/L (3.5-5.5); Sodium, Blood 137 mmol/L (136-145)
--- NOTE | 2019-05-27 06:14 | NUR ---
SHIFT SUMMARY . NO ACUTE CHANGE FROM ABOVE ASSESS. USUALLY TAKES OFF O2 . AWAKE ON AND OFF. FLUTTER VALVE EFFORT GOOD .ASSIST FOR URINAL AND SOMETIMES SPILLS URINAL. USES CALL LITE. SR. NO FURTHER ECTOPY
--- NOTE | 2019-05-27 09:38 | NUR ---
DIALYSIS DR BARTH ORDERED DIALYSIS THIS AM FOR PT. PT TRANSFERED TO DIALYSIS VIA W/C AFTER EATING BREAKFAST. TALKED WITH TARIQ JOHNSON. HELD TRANDATE PRIOR TO DIALYSIS. CONTINUE POT.
--- NOTE | 2019-05-27 11:44 | NUR ---
NOTE PT STILL IN DIALYSIS. ALERT AND COMFORTABLE. PT REQUESTED TO HOLD HEPARING UNTIL [facility] COMES BACK. HOLDING LUNCH FOR PT. CONTINUE POT.
--- NOTE | 2019-05-27 16:34 | NUR ---
EVENING NOTE PT ALERT AND ORIENTED. SR. VSS. UP AD NAIF. GAIT STEADY. PT TOLERATED DIALYSIS. DENIED PAIN. EATIGN WELL. S/S WORKING ON A D/C PLAN FOR LIVING AND RECEIVING DIALYSIS. CONTINUE POT.
--- NOTE | 2019-05-27 21:40 | NUR ---
CARE ASSUMPTION PT A&O X4. VSS. MONITOR SHOWS NSR, HR 90s. LUNG SOUNDS CLEAR T/O, SPO2 > 92% ON RA. PT DENIES PAIN/DISCOMFORT. WILL CONTINUE TO MONITOR AND PROVIDE CARE.
[2019-05-28 04:27] LABS: Hematocrit 34.6 % (37.0-53.0); Hemoglobin 11.2 g/dL (13.5-17.5)
[2019-05-28 04:46] LABS: Albumin, Blood 2.3 g/dL (3.4-5.0); Albumin/Globulin Ratio 0.5 (0.8-1.8); Bilirubin, Total 0.3 mg/dL (0.1-1.0); Bun/Creatinine Ratio 9.7 (12.0-20.0); Calcium, Blood 8.3 mg/dL (8.5-10.1); Creatinine, Blood 5.44 mg/dL (0.60-1.20); Globulin, Blood 4.7 g/dL (2.2-4.0); Magnesium, Blood 2.2 mg/dL (1.6-2.4); Potassium, Blood 3.4 mmol/L (3.5-5.5)
[2019-05-28 04:54] LABS: Phosphorus, Blood 4.7 mg/dL (2.5-4.9)
--- NOTE | 2019-05-28 05:17 | NUR ---
SHIFT SUMMARY PT CONTINUES TO BE A&O X4. VSS. MONITOR SHOWING NSR, HR 70-90s. LUNG SOUNDS CLEAR T/O, SPO2 > 92% ON RA. PT INDEPENDENT IN ROOM. NO EVENTS THIS SHIFT. WILL CONTINUE TO MONITOR AND PROVIDE CARE UNTIL REPORT OFF TO DAY SHIFT RN.
[2019-05-28 09:11] LABS: International Normalized Ratio 1.08; Prothrombin Time Results 11.4 Sec (9.7-11.5)
--- NOTE | 2019-05-28 09:20 | NUR ---
PATIENT TRANSFERRED TO ROOM 301, REPORT RECEIVED FROM ELIZABETH MENDIOLA. PATIENT IS A/OX4, UP INDPENDENTLY IN ROOM. VSS, ON RA. PICC LINE TO L UPPER ARM, IV K+ INFUSING. ORIENTED TO ROOM AND USE OF CALL LIGHT. PATIENT DENIES ANY NEEDS AT THIS TIME.
--- NOTE | 2019-05-28 09:21 | NUR ---
The pt was alert, oriented, conversant, and appeared serious. He refused the heparin shot because "my blood is thick enough already". I explained the risks of developing blood clots related to hospitalization and immobility, as well as the benefits of the heparin injection; he refused. Oral scheduled medication was given before he got into the wheelchair for transfer up to medical floor. IV potassium infusing at the time of transfer to room 301 upstairs. Pt taken by SERENA Shane to medical floor, without telemetry.
--- NOTE | 2019-05-28 19:17 | NUR ---
PATIENT A/OX4, UP INDPENDENTLY IN ROOM. LUNGS CLEAR, ON RA. VSS. PICC LINE TO L UPPER ARM AND 18G IV TO L AC WNL AND SL. TOLERATING RENAL DIET. NPERM CATH TO L UPPER CHEST, NO DILAYSIS TODAY. PLAN IS FOR A POSSIBLE BIOPSY ON THE KIDNEY. DENIES ANY NAUSEA. CONT OF BOWEL AND BLADDER. CALM AND COOPERATIVE WITH CARE, CALLS APPROPRIATELY FOR ASSISTANCE.
--- NOTE | 2019-05-29 04:51 | NUR ---
SHIFT SUMMARY NO ACUTE CHANGES THIS SHIFT. PT HAS RESTED FOR MOST OF THE NIGHT AND HAS NO COMPLAINTS. VITALS STABLE. PT HAS BEEN INDEPENDENT IN THE ROOM. PT DOES NOT USE CALL LIGHT AND COMES TO THE DOOR WHENEVER HE NEEDS SOMETHING. ASSESSMENT UNCHANGED. WILL CONTINUE TO MONITOR AND REPORT TO ONCOMING RN.
[2019-05-29 05:09] LABS: Hematocrit 33.6 % (37.0-53.0); Hemoglobin 10.7 g/dL (13.5-17.5)
[2019-05-29 05:34] LABS: Albumin, Blood 2.3 g/dL (3.4-5.0); Anion Gap 10 mmol/L (6-16); Blood Urea Nitrogen 74 mg/dL (8-24); Bun/Creatinine Ratio 11.3 (12.0-20.0); CO2, Blood 28 mmol/L (21-32); Calcium, Blood 8.5 mg/dL (8.5-10.1); Chloride, Blood 99 mmol/L (98-108); Creatinine, Blood 6.52 mg/dL (0.60-1.20); Glomerular Filtration Rate 9 (60-); Glucose, Blood 94 mg/dL (70-99); Magnesium, Blood 2.2 mg/dL (1.6-2.4); Phosphorus, Blood 4.8 mg/dL (2.5-4.9); Sodium, Blood 137 mmol/L (136-145)
[2019-05-29 12:22] LABS: BASOPHILS ABSOLUTE AUTO 0.12 K/mm3 (0.00-0.23); BASOPHILS PERCENT AUTO 1 % (0-2); EOSINOPHILS ABSOLUTE AUTO 0.69 K/mm3 (0.00-0.68); EOSINOPHILS PERCENT AUTO 6 % (0-6); IMMATURE GRAN ABSOLUTE AUTO 0.04 K/mm3 (0.00-0.10); IMMATURE GRAN PERCENT AUTO 0 % (0-1); LYMPHOCYTES ABSOLUTE AUTO 3.31 K/mm3 (0.84-5.20); LYMPHOCYTES PERCENT AUTO 30 % (21-46); MONOCYTES ABSOLUTE AUTO 1.03 K/mm3 (0.16-1.47); MONOCYTES PERCENT AUTO 9 % (4-13); Mean Corpuscular HGB 32.1 pg (26.0-34.0); Mean Corpuscular HGB Conc 31.8 g/dL (31.5-36.5); Mean Corpuscular Volume 101 fL (80-100); NEUTROPHILS ABSOLUTE AUTO 5.72 K/mm3 (1.96-9.15); NEUTROPHILS PERCENT AUTO 53 % (41-73); Platelet Count 193 K/mm3 (150-400); RDW Coefficient Variation 13.4 % (11.7-14.2); RDW Standard Deviation 49.5 fL (35.1-46.3); Red Blood Cell Count 3.36 M/mm3 (4.30-5.90); White Blood Cell Count 10.91 K/mm3 (4.00-11.30)
--- NOTE | 2019-05-29 18:22 | NUR ---
SHIFT SUMMARY [facility]. HOMELESS FROM [facility]. ZOILA ASSISTED PT WITH GETTING ESTABLISHED WITH . KIDNEY BX AND DIALYSIS COMPLETED TODAY. DENIES ANY PAIN. EATING AND DRINKING WELL. PERMACATH TO LEFT CHEST WALL. BARTH. HOLD ANY ANTICOAGULANTS FOR 48 HOURS (STARTING AT 1PM 05/29/19) PER KIDNEY BX PROTOCOL.
[2019-05-30 04:49] LABS: Hematocrit 32.6 % (37.0-53.0); Hemoglobin 10.6 g/dL (13.5-17.5)
[2019-05-30 05:07] LABS: Albumin, Blood 2.4 g/dL (3.4-5.0); Anion Gap 9 mmol/L (6-16); Blood Urea Nitrogen 72 mg/dL (8-24); Bun/Creatinine Ratio 11.8 (12.0-20.0); CO2, Blood 28 mmol/L (21-32); Calcium, Blood 8.6 mg/dL (8.5-10.1); Chloride, Blood 99 mmol/L (98-108); Creatinine, Blood 6.09 mg/dL (0.60-1.20); Glomerular Filtration Rate 10 (60-); Glucose, Blood 96 mg/dL (70-99); Magnesium, Blood 2.1 mg/dL (1.6-2.4); Phosphorus, Blood 4.4 mg/dL (2.5-4.9); Potassium, Blood 3.9 mmol/L (3.5-5.5); Sodium, Blood 136 mmol/L (136-145)
--- NOTE | 2019-05-30 07:15 | NUR ---
PT had renal bx and tolerated without complication. Denies pain or acute distress. Slightly irritable at HS but slept well. Had DIALYSISyesterday. PT says he is homeless, plans to stay with his sISTER IN [place] but is having dialysis set up here? DR Henry in to see PT but he was not in the room this AM. CREATININE 6.09
--- NOTE | 2019-05-30 16:22 | NUR ---
PT DISHARGED WITH . PT AOX4 AND COOPERATIVE OF CARE. PT HAD ALL PAPERS REVIEWED AND EDUCATIONAL MATERIAL SENT. PT [facility] MED[facility]. PT HAD O2 EVAL DONE PRIOR TO DISCHARGE AND DID NOT NEED TO HAVE HOOME O2. PT COLLECTED ALL PERSONAL BELONGINGS. PT ESCORTED OUT VIA WHEEL CHAIR.
--- NOTE | 2019-05-31 11:09 | NUR ---
PT ON 05/30/19 @ 0044 WENT AMA. HE HAD TOLD RADHADEMARCO EARLIER IN THE DAY OF LEAVING AGAINST MEDICAL ADVICE SOON HIS BROTHER ARRIVED. PT TRIED TO LEAVE WITHOUT HAVING HIS POWERGLIDE REMOVED, BUT WAS REDIRECTED INTO HIS ROOM. POWERGLIDE WAS TAKEN OUT, BUT PT WOULD NOT SIGN AMA PAPERS. DR HAMPTON HAD BEEN NOTIFIED EARLIER BY CARLO OF PT'S INTENTIONS AND CHARGE NURSE NOTIFIED. PT WAS INSTRUCTED TO CONTACT DIALYSIS CENTER AND GET SET UP FOR TREATMENT. PT WOULD NOT DISCUSS ANYMORE OF THE CARE HE NEEDED.PT TOOK HIS PERSONAL BELONGS AND LEFT.
== END 2019-05-30 16:21 | disposition left against medical advice (07) | DRG 871 ==
LOC: ER 12:03 → ICUE 13:50 → ICUW 13:50 → PCU 13:50 → ICUW 13:57 → ICUE 05-21 01:00 → PCU 05-26 15:37 → MEDS 05-28 09:28
PROVIDERS: Emergency Medicine; Internal Medicine Critical Care Medicine; Internal Medicine Nephrology; Internal Medicine Pulmonary Disease; Nurse Practitioner Acute Care; ADMIT Internal Medicine
PROC: 5A1945Z Respiratory Ventilation, 24-96 Consecutive Hours (ICD-10-PCS; 2019-05-20)
PROC: 0JH63XZ Insertion of Tunneled Vascular Access Device into Chest Subcutaneous Tissue and Fascia, Percutaneous Approach (ICD-10-PCS; principal; 2019-05-22)
PROC: 02HV33Z Insertion of Infusion Device into Superior Vena Cava, Percutaneous Approach (ICD-10-PCS; 2019-05-22)
PROC: B5181ZA Fluoroscopy of Superior Vena Cava using Low Osmolar Contrast, Guidance (ICD-10-PCS; 2019-05-22)
PROC: 5A1D70Z Performance of Urinary Filtration, Intermittent, Less than 6 Hours Per Day (ICD-10-PCS; 2019-05-24)
DX: A41.9 Sepsis, unspecified organism (principal); J96.01 Acute respiratory failure with hypoxia; J18.9 Pneumonia, unspecified organism; N18.6 End stage renal disease; I50.23 Acute on chronic systolic (congestive) heart failure; E87.2 Acidosis; E87.0 Hyperosmolality and hypernatremia; I42.9 Cardiomyopathy, unspecified; R64 Cachexia; I12.0 Hypertensive chronic kidney disease with stage 5 chronic kidney disease or end stage renal disease; Z94.5 Skin transplant status; F17.210 Nicotine dependence, cigarettes, uncomplicated; I70.1 Atherosclerosis of renal artery; E83.39 Other disorders of phosphorus metabolism; E87.5 Hyperkalemia; E88.09 Other disorders of plasma-protein metabolism, not elsewhere classified; Z68.25 Body mass index [BMI] 25.0-25.9, adult; F15.10 Other stimulant abuse, uncomplicated; R76.8 Other specified abnormal immunological findings in serum; D63.1 Anemia in chronic kidney disease; Z99.2 Dependence on renal dialysis
CPT/HCPCS: 31500; 31720; 36415; 36430; 36558; 36600; 50200; 51702; 71045; 76937; 77012; 80053; 80069; 80074; 81001; 81050; 82248; 82272; 82550; 82565; 82728; 82784; 82803; 82947; 83516; 83520; 83540; 83550; 83605; 83735; 84100; 84145; 84156; 84165; 84166; 84550; 85014; 85018; 85025; 85027; 85045; 85060; 85610; 85730; 86038; 86256; 86317; 86334; 86335; 86850; 86900; 86901; 86923; 87040; 87070; 87205; 88305; 88313; 88329; 88346; 88348; 88350; 93005; 93010; 93306; 93975; 94002; 94003; 94640; 94760; 97110; 97116; 97161; 97165; 97530; 99152; 99153; 99285-25; A9270; C1750; C1751; C1769; C9113; J0456; J0696; J1644; J2060; J2704; J3010; J3480; J7030; J7040; J7042; J7050; J7070; P9016

== ENCOUNTER 2020-12-17 12:08 | Emergency (ER) | payer OTHER ==
[~2020-12-17] VITALS: Ht 180.3 cm; Wt 72.6 kg
[2020-12-17 12:25] LABS: Calcium, Ionized (POC) 1.03 mmol/L (1.10-1.46); Chloride (POC) 107 mmol/L (98-108); Glucose (ISTAT POC) 88 mg/dL (70-99); Hemoglobin (POC) 9.5 g/dL (13.5-17.5); Potassium (POC) 6.4 mmol/L (3.5-5.5); Sodium (POC) 140 mmol/L (135-148); Total CO2 (POC) 25 mmol/L (21-32)
[2020-12-17 12:30] LABS: BASOPHILS ABSOLUTE AUTO 0.06 K/mm3 (0.00-0.23); BASOPHILS PERCENT AUTO 1 % (0-2); EOSINOPHILS ABSOLUTE AUTO 0.12 K/mm3 (0.00-0.68); EOSINOPHILS PERCENT AUTO 1 % (0-6); Hematocrit 30.4 % (37.0-53.0); Hemoglobin 9.7 g/dL (13.5-17.5); IMMATURE GRAN ABSOLUTE AUTO 0.05 K/mm3 (0.00-0.10); IMMATURE GRAN PERCENT AUTO 0 % (0-1); LYMPHOCYTES ABSOLUTE AUTO 1.48 K/mm3 (0.84-5.20); LYMPHOCYTES PERCENT AUTO 13 % (21-46); MONOCYTES ABSOLUTE AUTO 0.63 K/mm3 (0.16-1.47); MONOCYTES PERCENT AUTO 6 % (4-13); Mean Corpuscular HGB 31.1 pg (26.0-34.0); Mean Corpuscular HGB Conc 31.9 g/dL (31.5-36.5); Mean Corpuscular Volume 97 fL (80-100); Mean Platelet Volume 9.7 fL (9.1-12.4); NEUTROPHILS PERCENT AUTO 79 % (41-73); Platelet Count 103 K/mm3 (150-400); RDW Coefficient Variation 15.3 % (11.7-14.2); RDW Standard Deviation 54.8 fL (35.1-46.3); Red Blood Cell Count 3.12 M/mm3 (4.30-5.90); White Blood Cell Count 11.24 K/mm3 (4.00-11.30)
[2020-12-17 12:48] LABS: C-REACTIVE PROTEIN, EXT RANGE 6.79 mg/dL (0.000-0.300); Magnesium, Blood 2.6 mg/dL (1.6-2.4)
[2020-12-17] MEDS ORDERED: AMLODIPINE BESY10 MG PO (13:02)
[2020-12-17] MEDS ORDERED: HYDROXYZINE PAM25 MG PO (13:03)
[2020-12-17] MEDS ORDERED: LOSARTAN POTAS100 M1 PO (13:04)
[2020-12-17 13:05] LABS: International Normalized Ratio 1.05; Prothrombin Time Results 11.3 Sec (9.7-11.5)
[2020-12-17 14:12] LABS: Albumin, Blood 2.6 g/dL (3.4-5.0); Albumin/Globulin Ratio 0.5 (0.8-1.8); Bilirubin, Total 0.3 mg/dL (0.1-1.0); Bun/Creatinine Ratio 6.4 (12.0-20.0); Calcium, Blood 8.4 mg/dL (8.5-10.1); Creatinine, Blood 11.8 mg/dL (0.60-1.20); Globulin, Blood 5.4 g/dL (2.2-4.0); Phosphorus, Blood 10.1 mg/dL (2.5-4.9); Potassium, Blood 6.3 mmol/L (3.5-5.5)
[2020-12-17 15:40] LABS: Calcium, Ionized (POC) 1.13 mmol/L (1.10-1.46); Chloride (POC) 104 mmol/L (98-108); Creatinine (POC) 13.7 mg/dL (0.8-1.3); Glucose (ISTAT POC) 190 mg/dL (70-99); Hemoglobin (POC) 9.9 g/dL (13.5-17.5); Potassium (POC) 6.2 mmol/L (3.5-5.5); Sodium (POC) 140 mmol/L (135-148); Total CO2 (POC) 28 mmol/L (21-32)
== END 2020-12-17 16:18 | disposition left against medical advice (07) ==
LOC: ER 12:08
PROVIDERS: Emergency Medicine
DX: I13.2 Hypertensive heart and chronic kidney disease with heart failure and with stage 5 chronic kidney disease, or end stage renal disease (principal); I50.9 Heart failure, unspecified; N18.6 End stage renal disease; F17.210 Nicotine dependence, cigarettes, uncomplicated
CPT/HCPCS: 36415; 70450; 71045; 76770; 80047; 80053; 82947; 83735; 84100; 85014; 85025; 85610; 85730; 86140; 87040; 93005; 93010; 93990; 94640; 96365; 96367; 96375; 96376; 99284-25; A9270; J0610; J0696; J1644